=== PATIENT | male | born 1975 | race African-American/Black ===

== ENCOUNTER 2016-11-02 09:19 | Emergency (ER) | payer OTHER, SELFPAY ==
[2016-11-02] MEDS ORDERED: HYDROmorphone 0.5 MG/0.5 ML Syringe IVPUSH ONE (10:28)
[2016-11-02] MEDS ORDERED: Sodium Chloride 0.9% 10 ML Syringe FLUSH PRN (10:28)
[2016-11-02] MEDS ORDERED: Clindamycin Phosphate 600 MG in Sodium Chloride 0.9% 100 ML IV ONE (10:28)
[2016-11-02] MEDS ORDERED: Metoclopramide 10 MG/2 ML SDV IVPUSH ONE (10:29)
--- NOTE | 2016-11-02 10:29 | EDM.PDOC ---
ED HPI HEADACHE COMPLAINT - General Chief Complaint: Headache Stated Complaint: BOTELLO AND FACIAL SWELLING /CHILLS Time Seen by Provider: 11/02/16 10:20 Source of Information: Reports: Patient History Limitations: Reports: No limitations - History of Present Illness INITIAL COMMENTS - FREE TEXT/NARRATIVE: 41-year-old male presents the ED with severe pain right ana-face radiating from a dental problem. Pain and swelling started 3 days ago. Swelling of the face got dramatically worse over the last 24 hours. Constant severe throbbing pain. He was unable to sleep all night due to the pain. Pain appears to be originating from a canine tooth right upper. He complains of bilateral sinus pressure discomfort for several months prior to this however. He has no associated fever or chills. Symptom Onset Date: 10/30/16 Timing/Duration: Reports: day(s):, gradual onset, getting worse Location: Reports: other (right ana-face.) Quality: Reports: pounding, other (throbbing) Severity: Reports: severe. 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 - Related Data Allergies/ADRs: Allergies Allergy/AdvReac Type Severity Reaction Status Date / Time No Known Allergies Allergy Verified 11/02/16 09:31 Home Meds: Home Meds Clindamycin HCl 300 mg PO TID #24 capsule 11/02/16 [Rx] oxyCODONE HCl/Acetaminophen [Percocet 5-325 mg Tablet] 1 - 2 each PO Q4H PRN # 20 tablet 11/02/16 [Rx] Past Medical History - Past Health History Medical/Surgical History: Denies Medical/Surgical History HEENT History: Reports: Sinusitis Social & Family History - Tobacco Use Smoking Status *Q: Current Every Day Smoker Years of Tobacco use: 10 Packs/Tins Daily: 2 Used Tobacco, but Quit: No Second Hand Smoke Exposure: No - Caffeine Use Caffeine Use: Reports: Coffee, Soda - Recreational Drug Use Recreational Drug Use: No - Living Situation & Occupation Living situation: Reports: Occupation: employed ED ROS GENERAL - Review of Systems Review Of Systems: See Below Constitutional: Reports: malaise, weakness, fatigue, decreased appetite. Denies : fever, chills HEENT: Reports: Dental pain (right N9 tooth appears to be the source of his infection and right ana-facial swelling.), Ear pain (right side) Respiratory: Reports: no symptoms, shortness of breath Cardiovascular: Reports: No symptoms Endocrine: Reports: no symptoms GI/Abdominal: Reports: No symptoms : Reports: no symptoms Musculoskeletal: Reports: no symptoms Skin: Reports: no symptoms Neurological: Reports: no symptoms Psychiatric: Reports: No symptoms - Physical Exam Exam: See Below Exam Limited By: No limitations General Appearance: alert, moderate distress (he looks absolutely miserable. The right side of his face is markedly swollen from the edge of his nose to his mandible on the right side and up underneath his eye.) Eye Exam: bilateral eye: normal inspection, PERRL Ears: normal TMs Throat/Mouth: Normal inspection, Normal oropharynx, Other (pain is coming from the right canine tooth at least it seems to be the most sensitive on palpation with tongue blade. A dental abscess evident.) Head Exam: facial swelling (right ana-face is markedly swollen from the edge of his nose to his edge of his mandible and up to his eye on the right side.) Neck: normal inspection, supple, non-tender, full range of motion. No: lymphadenopathy (L), lymphadenopathy (R) Respiratory/Chest: no respiratory distress, lungs clear, normal breath sounds, no accessory muscle use Cardiovascular: normal peripheral pulses, regular rate, rhythm, no edema, no gallop, no murmur Course - Vital Signs Last Recorded V/S: Last Vital Signs Temp 36.8 C 11/02/16 09:26 Pulse 76 11/02/16 09:26 Resp 18 11/02/16 09:26 BP 177/99 H 11/02/16 09:26 Pulse Ox 98 11/02/16 09:26 - Orders/Labs/Meds Orders: Active Orders 24 hr Category Date Time Status Peripheral IV Care [RC] . DIRECTED Care 11/02/16 10:28 Active Ketorolac [Toradol] Med 11/02/16 10:30 Active 30 mg IVPUSH ONETIME Sodium Chloride 0.9% [Saline Flush] Med 11/02/16 10:28 Active 10 ml FLUSH ASDIRECTED PRN Peripheral IV Insertion Adult [OM.PC] Stat Oth 11/02/16 10:28 Ordered Medication Orders Ketorolac Tromethamine (Toradol) 30 mg IVPUSH ONETIME VELIA Last Admin: 11/02/16 11:07 Dose: 30 mg Sodium Chloride (Saline Flush) 10 ml FLUSH ASDIRECTED PRN PRN Reason: Keep Vein Open Last Admin: 11/02/16 11:02 Dose: 10 ml Meds: Medications Generic Name Dose Route Start Last Admin Trade Name Freq PRN Reason Stop Dose Admin Ketorolac Tromethamine 30 mg 11/02/16 10:30 11/02/16 11:07 Toradol IVPUSH 30 mg ONETIME VELIA Administration Sodium Chloride 10 ml 11/02/16 10:28 11/02/16 11:02 Saline Flush FLUSH 10 ml ASDIRECTED PRN Administration Keep Vein Open Discontinued Medications Generic Name Dose Route Start Last Admin Trade Name Freq PRN Reason Stop Dose Admin Hydromorphone HCl 0.5 mg 11/02/16 10:28 11/02/16 10:58 Dilaudid IVPUSH 11/02/16 10:29 0.5 mg ONETIME ONE Administration Clindamycin Phosphate 600 mg/ 104 mls @ 100 mls/hr 11/02/16 10:28 11/02/16 11 :02 Sodium Chloride IV 11/02/16 11:30 100 mls/hr ONETIME ONE Administration Metoclopramide HCl 7.5 mg 11/02/16 10:29 11/02/16 10:56 Reglan IVPUSH 11/02/16 10:30 7.5 mg ONETIME ONE Administration - Radiology Interpretation Free Text/Narrative:: 41-year-old male presents to the ED with right ana-facial swelling and facial pain. It appears that his right canine upper tooth is the culprit tooth causing the dental infection and some facial cellulitis. He has a history of chronic sinusitis with recurrent problems from a 6-7 months however as well. Plan CT maxillofacial bones to be done. He will be given clindamycin 600 mg intravenously for antibiotic. Given Dilaudid 0.5 mg IV with Toradol 30 mg IV and Reglan 7.5 mg IV for acute pain and nausea relief. He will be placed on clindamycin 300 mg 3 times a day for the next 8 days to clear up dental infection. Percocet 5 325 mg tablets one or 2 every 4 hours for pain relief in combination with Motrin 600 mg every 6 hours to reduce pain and inflammation. To followup with dentist when able. - Re-Assessments/Exams Free Text/Narrative Re-Assessment/Exam: 11/02/16 11:27CT of the maxillofacial sinuses does reveal moderate right sided maxillary facial sinusitis. However this appears more old. His current right hemifacial swelling is therefore secondary to dental abscess and spread of infection to the soft tissues. He will be treated as above with clindamycin 600 mg IV. He will be discharged home with clindamycin 300 mg 3 times a day for 8 days and Percocet 5/325mg x 20 tabs. Motrin 600 mg every 6 hours for pain and inflammation relief.Advised followup with dentist in about a week's time to have the tooth extracted. 11/02/16 12:18 patient has completed his clindamycin infusion. His pain is controlled with the Dilaudid Toradol and Reglan. Discharged on Percocet 325 mg tablets x20 for pain relief as above. Departure - Departure Time of Disposition: 12:19 Disposition: Home, Self-Care 01 Condition: fair Clinical Impression: Dental abscess, Facial cellulitis Prescriptions: Clindamycin HCl 300 mg PO TID #24 capsule oxyCODONE HCl/Acetaminophen [Percocet 5-325 mg Tablet] 1 - 2 each PO Q4H PRN # 20 tablet PRN Reason: pain relief. Instructions: Dental Abscess, [id number], Cellulitis, Adult, [id number] Referrals: Narcisa Junior MD [Primary Care Provider] - Forms: ED Department Discharge, Return to Work/School Form Additional Instructions: evaluation in the next apartment today in regards to dental infection appears to be the right canine tooth that is causing an infection that has spread up into the right side of the face. Infection appears to be quite extensive at the time of exam. CT of the facial bones does reveal that there is an underlying right maxillary sinus infection as well. This appears to be unrelated to the dental infection. Treatment was started in the ED with clindamycin 600 mg intravenously and Dilaudid Toradol and Reglan for pain relief. Treatment at home will be clindamycin 300 mg 3 times daily for 8 days to clear up infection Percocet tabs 5-325 one or 2 every 4 hours for pain relief. Continue Motrin 600 mg every 6 hours to relieve pain and inflammation as well.you will need to followup with a dentist within the next 7-10 days tentatively to have that tooth extracted to prevent recurrent infection. Expect marked improvement over the next 48-72 hours. - My Orders Last 24 Hours: My Active Orders 11/02/16 10:28 Peripheral IV Care [RC] . DIRECTED Sodium Chloride 0.9% [Saline Flush] 10 ml FLUSH ASDIRECTED PRN Peripheral IV Insertion Adult [OM.PC] Stat 11/02/16 10:30 Ketorolac [Toradol] 30 mg IVPUSH ONETIME - Assessment/Plan Last 24 Hours: My Active Orders 11/02/16 10:28 Peripheral IV Care [RC] . DIRECTED Sodium Chloride 0.9% [Saline Flush] 10 ml FLUSH ASDIRECTED PRN Peripheral IV Insertion Adult [OM.PC] Stat 11/02/16 10:30 Ketorolac [Toradol] 30 mg IVPUSH ONETIME
[2016-11-02] MEDS ORDERED: Ketorolac 30 MG/ML SDV IVPUSH SCH (10:30)
--- NOTE | 2016-11-02 10:48 | CT ---
CT paranasal sinuses Technique: Multiple axial sections through the paranasal sinuses were obtained. Comparison: No previous study. Findings: Mild mucosal thickening noted within the right maxillary sinus. Other paranasal sinuses are clear. No air-fluid levels are seen. Mastoid sinuses are clear. Middle ear cavities are also clear. Minimal nasal septal deviation is seen. Impression: 1. Mild mucosal thickening within the right maxillary sinus. Minimal nasal septal deviation. 2. CT study of the paranasal sinuses is otherwise unremarkable. Diagnostic code #2
[2016-11-02 12:21] VITALS: BP 130/87
== END 2016-11-02 12:00 | disposition home or self-care (01) ==
LOC: JD.ED 09:19
DX: K04.7 Periapical abscess without sinus (principal); L03.211 Cellulitis of face; F17.210 Nicotine dependence, cigarettes, uncomplicated
CPT/HCPCS: 70486; 96365; 96375; 99284; J1170; J1885; J2765; J7030; J7050

== ENCOUNTER 2017-04-18 18:10 | Emergency (ER) | payer OTHER, SELFPAY ==
[2017-04-18] MEDS ORDERED: Sodium Chloride 0.9% 10 ML Syringe FLUSH PRN (18:28)
--- NOTE | 2017-04-18 18:48 | EDM.PDOC ---
ED HPI GENERAL MEDICAL PROBLEM - General Chief Complaint: Lower Extremity Injury/Pain Stated Complaint: L KNEE INJURY Time Seen by Provider: 04/18/17 18:27 Source of Information: Reports: Patient, Family History Limitations: Reports: Intoxication - History of Present Illness INITIAL COMMENTS - FREE TEXT/NARRATIVE: The patient presents with left knee injury. The patient admits to drinking wine today. He got caught up in the dogs leash and he got tripped up and he fell and hurt his left knee. He has an obvious deformity to the left patella. He cannot lift his leg off the bed. He did not hit his head or hurt his neck. He has no chest pain or abdominal pain. He has no other injuries. Onset: Today, Sudden Duration: Minutes: Location: Reports: Lower Extremity, Left (Patella) Quality: Reports: Sharp Severity: Moderate Improves with: Reports: None Worsens with: Reports: Movement Context: Reports: Activity (He fell. He was tripped by the dog's leash) Associated Symptoms: Reports: No Other Symptoms Left Knee Pain Score (Numeric/FACES): 8 - Related Data Allergies Allergy/AdvReac Type Severity Reaction Status Date / Time No Known Allergies Allergy Verified 11/02/16 09:31 Home Meds: Home Meds Hydrocodone/Acetaminophen [Hydrocodon-Acetaminophen 5-325] 1 - 2 each PO Q6HR PRN #20 tablet 04/18/17 [Rx] Past Medical History - Past Health History Medical/Surgical History: Denies Medical/Surgical History HEENT History: Reports: Sinusitis Social & Family History - Tobacco Use Smoking Status *Q: Never Smoker Years of Tobacco use: 10 Packs/Tins Daily: 2 Used Tobacco, but Quit: No Second Hand Smoke Exposure: No - Caffeine Use Caffeine Use: Reports: Coffee, Soda - Recreational Drug Use Recreational Drug Use: No - Living Situation & Occupation Living situation: Reports: Occupation: Employed Review of Systems - Review of Systems Review Of Systems: See Below Constitutional: Reports: No Symptoms Eyes: Reports: No Symptoms Ears: Reports: No Symptoms Nose: Reports: No Symptoms Mouth/Throat: Reports: No Symptoms Respiratory: Reports: No Symptoms Cardiovascular: Reports: No Symptoms GI/Abdominal: Reports: No Symptoms Genitourinary: Reports: No Symptoms Musculoskeletal: Reports: Other (Left knee pain and deformity) ED EXAM, GENERAL - Physical Exam Exam: See Below Exam Limited By: No Limitations General Appearance: Alert, No Apparent Distress Ears: Normal External Exam Nose: Normal Inspection Head: Atraumatic, Normocephalic Neck: Normal Inspection Respiratory/Chest: No Respiratory Distress, Lungs Clear, Normal Breath Sounds Cardiovascular: Regular Rate, Rhythm, No Edema, No Murmur GI/Abdominal: Soft, Non-Tender, No Organomegaly, No Mass Back Exam: Normal Inspection Extremities: Other (Deformity at the patella that appears to be fractured. Pain upon palpation to that area. Good sensation and pulses distally.) Course - Vital Signs Last Recorded V/S: Last Vital Signs Temp 97.5 F 04/18/17 18:25 Pulse 53 L 04/18/17 18:25 Resp 16 04/18/17 18:25 BP 121/82 04/18/17 18:25 Pulse Ox 99 04/18/17 18:25 - Orders/Labs/Meds Orders: Active Orders 24 hr Category Date Time Status Peripheral IV Care [RC] . DIRECTED Care 04/18/17 18:28 Active Knee Min 4V Lt [CR] Stat Exams 04/18/17 18:27 Ordered Sodium Chloride 0.9% [Saline Flush] Med 04/18/17 18:28 Active 10 ml FLUSH ASDIRECTED PRN Peripheral IV Insertion Adult [OM.PC] Routine Oth 04/18/17 18:28 Ordered Medication Orders Sodium Chloride (Saline Flush) 10 ml FLUSH ASDIRECTED PRN PRN Reason: Keep Vein Open Last Admin: 04/18/17 18:30 Dose: 10 ml Labs: Laboratory Tests 04/18/17 04/18/17 Range/Units 18:30 18:30 WBC 4.69 (4.23-9.07) K/mm3 RBC 5.57 (4.63-6.08) M/mm3 Hgb 14.1 (13.7-17.5) gm/L Hct 42.8 (40.1-51.0) % MCV 76.8 L (79.0-92.2) fl MCH 25.3 L (25.7-32.2) pg MCHC 32.9 (32.2-35.5) g/dl RDW Std Deviation 40.1 (35.1-43.9) fL Plt Count 265 (163-337) K/mm3 MPV 10.2 (9.4-12.3) fl Neut % (Auto) 24.3 L (34.0-67.9) % Lymph % (Auto) 62.9 H (21.8-53.1) % Cowley % (Auto) 6.8 (5.3-12.2) % Eos % (Auto) 5.1 (0.8-7.0) Baso % (Auto) 0.9 (0.1-1.2) % Neut # (Auto) 1.14 L (1.78-5.38) K/mm3 Lymph # (Auto) 2.95 (1.32-3.57) K/mm3 Cowley # (Auto) 0.32 (0.30-0.82) K/mm3 Eos # (Auto) 0.24 (0.04-0.54) K/mm3 Baso # (Auto) 0.04 (0.01-0.08) K/mm3 Manual Slide Review Normal smear Sodium 145 (136-145) mEq/L Potassium 4.0 (3.5-5.1) mEq/L Chloride 106 (98-107) mEq/L Carbon Dioxide 30 (21-32) mEq/L Anion Gap 13.0 (5-15) BUN 8 (7-18) mg/dL Creatinine 1.3 (0.7-1.3) mg/dL Est Cr Clr Drug Dosing 63.00 mL/min Estimated GFR (MDRD) > 60 (>60) mL/min BUN/Creatinine Ratio 6.2 L (14-18) Glucose 99 (74-106) mg/dL Calcium 9.2 (8.5-10.1) mg/dL Total Bilirubin 1.0 (0.2-1.0) mg/dL AST 60 H (15-37) U/L ALT 98 H (16-63) U/L Alkaline Phosphatase 39 L (46-116) U/L Total Protein 8.4 H (6.4-8.2) g/dl Albumin 4.4 (3.4-5.0) g/dl Globulin 4.0 gm/dL Albumin/Globulin Ratio 1.1 (1-2) Ethyl Alcohol 0.28 (0.00) gm% Meds: Medications Generic Name Dose Route Start Last Admin Trade Name Freq PRN Reason Stop Dose Admin Sodium Chloride 10 ml 04/18/17 18:28 04/18/17 18:30 Saline Flush FLUSH 10 ml ASDIRECTED PRN Administration Keep Vein Open - Re-Assessments/Exams Free Text/Narrative Re-Assessment/Exam: 04/18/17 18:48 I ordered an IV saline lock, labs, and an x-ray of his left knee. 04/18/17 19:05 His CBC looks good. His CMP shows slightly elevated liver enzymes. His ETOH is elevated at 0.28. The patient's knee x-ray shows a patellar fracture. There is at least [address] [facility] and talked with Dr Silviano Sheets and he recommended a knee immobilizer and crutches and he can follow up with one of our doctors here in [facility]. Departure - Departure Time of Disposition: 19:10 Disposition: Home, Self-Care 01 Condition: Good Clinical Impression: Left patella fracture Qualifiers: Encounter type: initial encounter Fracture type: closed Fracture morphology: comminuted Fracture alignment: displaced Qualified Code(s): S82.042A - Displaced comminuted fracture of left patella, initial encounter for closed fracture - Discharge Information Prescriptions: Hydrocodone/Acetaminophen [Hydrocodon-Acetaminophen 5-325] 1 - 2 each PO Q6HR PRN #20 tablet PRN Reason: Pain Referrals: Danny Joseph MD [Physician] - 3 Days Forms: ED Department Discharge Additional Instructions: Ice your knee for 15 minutes every other hour while awake for 2 days. Elevate your knee above your heart as much as you can for 2 days to decrease the swelling. Take motrin or aleve for the pain or you can take some hydrocodone for the pain. Follow up with Dr Joseph early next week. Please return if you are worse. - My Orders Last 24 Hours: My Active Orders 04/18/17 18:27 Knee Min 4V Lt [CR] Stat 04/18/17 18:28 Peripheral IV Care [RC] . DIRECTED Sodium Chloride 0.9% [Saline Flush] 10 ml FLUSH ASDIRECTED PRN Peripheral IV Insertion Adult [OM.PC] Routine - Assessment/Plan Last 24 Hours: My Active Orders 04/18/17 18:27 Knee Min 4V Lt [CR] Stat 04/18/17 18:28 Peripheral IV Care [RC] . DIRECTED Sodium Chloride 0.9% [Saline Flush] 10 ml FLUSH ASDIRECTED PRN Peripheral IV Insertion Adult [OM.PC] Routine
[2017-04-18 20:00] VITALS: BP 112/75
--- NOTE | 2017-04-19 13:56 | CR ---
Left knee: Four views of the left knee were obtained. Comparison: No previous study. Comminuted and distracted patellar fracture is seen. Mild medial joint space narrowing is noted within the knee. Small joint effusion is seen. No additional fracture is appreciated. Impression: 1. Comminuted and distracted patellar fracture. 2. Other incidental findings as noted above. Diagnostic code #5
== END 2017-04-18 19:30 | disposition home or self-care (01) ==
LOC: JD.ED 18:10
DX: S82.042A Displaced comminuted fracture of left patella, initial encounter for closed fracture (principal); W01.0XXA Fall on same level from slipping, tripping and stumbling without subsequent striking against object, initial encounter
CPT/HCPCS: 36415; 73564; 80053; 85025; 99284; G0480; J7050

== ENCOUNTER 2017-04-21 07:38 | Day surgery (SDC) | payer OTHER, SELFPAY ==
--- NOTE | 2017-04-21 06:23 | HP ---
DATE OF ADMISSION: 04/21/2017 HISTORY: This is the first orthopedic outpatient admission for surgery for this 42-year- old male, who suffered an injury to his left knee. The patient was out jogging on 04/18/2017, when he tripped over a rope, fell directly on his left knee, causing severe swelling and pain. He presented to the emergency room, and x- rays found him to have a comminuted fracture of the left patella that was displaced. The patient had no other injuries other than the left knee. The patient was evaluated through the [facility]opedic [facility] and after evaluation and the significant fracture of the patella, he is now being scheduled for an outpatient surgery for open reduction and internal fixation of the left patella. Procedure has been outlined to him. He understands that and has consented to the surgery. ALLERGIES: No known drug allergies. PAST MEDICAL HISTORY: Healthy 42-year-old male, who has been quite active. CURRENT MEDICATIONS: Include hydrocodone 5/325. PAST SURGICAL HISTORY: Questionable left knee. The patient states he had to have fluid drained under general anesthesia. No complications or problems from the anesthesia. SOCIAL HISTORY: The patient is a smoker. He smokes approximately 10-11 cigars per day. His alcohol intake is occasional. REVIEW OF SYSTEMS: The patient denies any bleeding history or blood clot history. PHYSICAL EXAMINATION: GENERAL: Today reveals a well-developed, well-nourished 42-year-old black male, in [id number] distress. HEAD, EYES, EARS, NOSE, AND THROAT: Normocephalic. NECK: Supple. CHEST: Clear. COR: Regular rate. ABDOMEN: Soft. : Intact. EXTREMITIES: Examination of the left knee reveals positive severe effusion noted about the knee joint area, severe pain on direct pressure or palpation over the patella. Skin is intact. Circulation is intact. RADIOLOGY: X-rays reveal a comminuted displaced fracture of the left patella. PLAN: Plan is for the patient to undergo an open reduction and internal fixation of the left patella fracture. ZAIDA /[id number]
[~2017-04-21 07:38] MED LIST: Lactated Ringers 1,000 ML IV SCH; Lidocaine 1%/Sod Bicarbonate in NS 8.4% 1 ML Syringe IV PRN; Sodium Chloride 0.9% 10 ML Syringe FLUSH PRN
[2017-04-21] MEDS ORDERED: Lidocaine 1% 4 ML ONE (08:24)
[2017-04-21] MEDS ORDERED: Ondansetron 4 MG/2 ML SDV ONE (08:24)
[2017-04-21] MEDS ORDERED: Midazolam 1 MG/ML 2 ML SDV ONE (08:25)
[2017-04-21] MEDS ORDERED: Propofol 200 MG/20 ML SDV ONE (08:25)
[2017-04-21] MEDS ORDERED: fentaNYL 250 MCG/5 ML SDV ONE (08:25)
[2017-04-21] MEDS ORDERED: Iodine/Sodium Iodide 2% Tincture 30 ML Bottle ONE (08:30)
--- NOTE | 2017-04-21 08:58 | PCM.PREANE ---
Preanesthetic Assessment - Anesthesia/Transfusion/Family Hx Anesthesia History: No Prior Anesthesia Family History of Anesthesia Reaction: No Transfusion History: No Prior Transfusion(s) - Review of Systems General: No Symptoms Pulmonary: No Symptoms Cardiovascular: No Symptoms Gastrointestinal: No Symptoms Neurological: No Symptoms Other: Reports: Liver Problems (aenzymes elevated) - Physical Assessment NPO Status Date: 04/20/17 NPO Status Time: 23:00 O2 Sat by Pulse Oximetry: 98 Respiratory Rate: 16 Vital Signs: Last Vital Signs Temp 98.6 F 04/21/17 07:50 Pulse 70 04/21/17 07:50 Resp 16 04/21/17 07:50 BP 124/87 04/21/17 07:50 Pulse Ox 98 04/21/17 07:50 Height: 5 ft 6 in Weight: 58.06 kg ASA Class: 2 Mental Status: Alert & Oriented x3 Airway Class: Mallampati = 2 Dentition: Reports: Missing Tooth/Teeth, Caries Thyro-Mental Finger Breadths: 3 Mouth Opening Finger Breadths: 3 ROM/Head Extension: Full Lungs: Clear to Auscultation, Normal Respiratory Effort Cardiovascular: Regular Rate, Regular Rhythm, No Murmurs - Allergies Allergies/Adverse Reactions: Allergies Allergy/AdvReac Type Severity Reaction Status Date / Time No Known Allergies Allergy Verified 04/20/17 15:53 - Blood Blood Available: No - Acknowledgements Anesthesia Type Planned: General Anesthesia Pt an Appropriate Candidate for the Planned Anesthesia: Yes Alternatives and Risks of Anesthesia Discussed w Pt/Guardian: Yes Pt/Guardian Understands and Agrees with Anesthesia Plan: Yes PreAnesthesia Questionnaire - Past Health History Medical/Surgical History: Denies Medical/Surgical History HEENT History: Reports: Sinusitis, Other (See Below) (can't read or write) Cardiovascular History: Reports: None Respiratory History: Reports: None Gastrointestinal History: Reports: None Genitourinary History: Reports: None 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: 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: None Neurological History: Reports: None Psychiatric History: Reports: None Endocrine/Metabolic History: Reports: None Hematologic History: Reports: None Immunologic History: Reports: None Oncologic (Cancer) History: Reports: None Dermatologic History: Reports: None - Past Surgical History Head Surgeries/Procedures: Reports: None Cardiovascular Surgical History: Reports: None Respiratory Surgical History: Reports: None GI Surgical History: Reports: None Female Surgical History: Reports: None Male Surgical History: Reports: None Neurological Surgical History: Reports: None Musculoskeletal Surgical History: Reports: Other (See Below) Other Musculoskeletal Surgeries/Procedures:: L knee surgery Dermatological Surgical History: Reports: None - SUBSTANCE USE Smoking Status *Q: Current Every Day Smoker Tobacco Use Within Last Twelve Months: Cigars Second Hand Smoke Exposure: Yes Days Per Week of Alcohol Use: 3 Number of Drinks Per Day: 12 (beer) Total Drinks Per Week: 36 Recreational Drug Use History: No - HOME MEDS Home Medications: Home Meds Hydrocodone/Acetaminophen [Hydrocodon-Acetaminophen 5-325] 1 - 2 each PO Q6HR PRN #20 tablet 04/18/17 [Rx] - CURRENT (IN HOUSE) MEDS Current Meds: Current Medications Lactated Ringer's (Ringers, Lactated) 1,000 mls @ 125 mls/hr IV ASDIRECTED VELIA Stop: 04/21/17 23:00 Last Admin: 04/21/17 08:17 Dose: 125 mls/hr Lidocaine/Sodium Bicarbonate (Buffered Lidocaine 1% In Ns 8.4%) 0.25 ml IV ONETIME PRN PRN Reason: Prior to IV Start Stop: 04/21/17 18:00 Last Admin: 04/21/17 08:17 Dose: 0.25 ml Sodium Chloride (Saline Flush) 10 ml FLUSH ASDIRECTED PRN PRN Reason: Keep Vein Open Stop: 04/21/17 18:00 Discontinued Medications Bupivacaine HCl/Epinephrine Bitart (Marcaine 0.25%/Epinephrine 1:200,000) Confirm Administered Dose 30 ml .ROUTE .STK-MED ONE Stop: 04/21/17 08:31 Fentanyl (Sublimaze) Confirm Administered Dose 250 mcg .ROUTE .STK-MED ONE Stop: 04/21/17 08:26 Lidocaine HCl (Xylocaine-Mpf 1%) Confirm Administered Dose 4 mls @ as directed .ROUTE .STK-MED ONE Stop: 04/21/17 08:25 Iodine (Iodine 2% Mild Tincture) Confirm Administered Dose 30 ml .ROUTE .STK- MED ONE Stop: 04/21/17 08:31 Midazolam HCl (Versed 1 Mg/Ml) Confirm Administered Dose 2 mg .ROUTE .STK-MED ONE Stop: 04/21/17 08:26 Ondansetron HCl (Zofran) Confirm Administered Dose 4 mg .ROUTE .STK-MED ONE Stop: 04/21/17 08:25 Propofol (Diprivan 20 Ml) Confirm Administered Dose 200 mg .ROUTE .STK-MED ONE Stop: 04/21/17 08:26
[2017-04-21] MEDS ORDERED: Cyclobenzaprine 10 MG Tab PO PRN (09:12)
[2017-04-21] MEDS ORDERED: HYDROmorphone 0.5 MG/0.5 ML Syringe IVPUSH PRN ×2 (09:12→10:20)
[2017-04-21] MEDS ORDERED: Ondansetron 4 MG/2 ML SDV IVPUSH PRN ×2 (09:12→09:37)
[2017-04-21] MEDS ORDERED: Acetaminophen/oxyCODONE 325-5 MG Tab PO PRN (09:12)
[2017-04-21] MEDS ORDERED: Ketorolac 30 MG/ML SDV IVPUSH PRN (09:12)
[2017-04-21] MEDS ORDERED: Rocuronium 50 MG/5 ML Vial ONE (09:25)
[2017-04-21] MEDS ORDERED: Meperidine PF 50 MG/ML Syringe IVPUSH PRN (09:37)
[2017-04-21] MEDS ORDERED: fentaNYL 100 MCG/2 ML SDV IVPUSH PRN (09:37)
[2017-04-21] MEDS ORDERED: ceFAZolin 1 GM Vial ONE (09:46)
[2017-04-21] MEDS ORDERED: Lactated Ringers 1,000 ML ONE (09:56)
[2017-04-21] MEDS: Lidocaine 1% with EPINEPHrine 1:100,000 20 ML MDV ONE ×2 (09:58→11:10)
[2017-04-21] MEDS: Bupivacaine 0.25%/EPINEPHrine 1:200,000 30 ML SDV ONE ×2 (09:58→11:10)
[2017-04-21] MEDS ORDERED: HYDROmorphone 1 MG/ML Syringe ONE ×2 (10:02→10:36)
[2017-04-21] MEDS ORDERED: Morphine 15 MG Tab.ER PO ONE (11:15)
[2017-04-21] MEDS ORDERED: Ketorolac 30 MG/ML SDV ONE (11:25)
--- NOTE | 2017-04-21 11:29 | PCM.POSTAN ---
POST ANESTHESIA ASSESSMENT - MENTAL STATUS Mental Status: Alert, Oriented - VITAL SIGNS Pulse Rate: 94 SaO2: 97 Resp Rate: 16 Blood Pressure: 141/81 Temperature: 36.7 C - RESPIRATORY Respiratory Status: Respiratory Rate WNL, Airway Patent, O2 Saturation Stable, Supplemental Oxygen - CARDIOVASCULAR CV Status: Pulse Rate WNL, Blood Pressure Stable - GASTROINTESTINAL GI Status: No Symptoms - PAIN Pain Score: 0 - POST OP HYDRATION Hydration Status: Adequate & Stable
[2017-04-21 12:53] VITALS: BP 153/79
--- NOTE | 2017-04-21 13:54 | OR ---
DATE OF OPERATION: 04/21/2017 SURGEON: Danny Joseph MD PREOPERATIVE DIAGNOSIS: Comminuted fracture of left patella, displaced, unstable. POSTOPERATIVE DIAGNOSIS: Comminuted fracture of left patella, displaced, unstable. ANESTHESIA: General. OPERATION PERFORMED: Open reduction and internal fixation of comminuted left patellar fracture with tension band wiring. DESCRIPTION OF PROCEDURE: The patient was taken to the operating room in a supine position, where he was placed under a general anesthesia. The left leg was prepped and draped by standard fashion for operation to the left knee. After prepping and draping, the operation proceeded with a midline skin incision being placed, beginning about an inch above the superior pole area and ending about an inch below the inferior pole of the patella. Penetrating through the skin and subcutaneous tissues, these were sharply dissected down to the surrounding fascia and the patella itself and the fracture site. The fracture site was then identified and the soft tissues were reflected away from the patella on both the medial and lateral side to expose the patella, the patella tendon, and the area of the quadriceps tendon. The patellar fracture site was then opened and it was debrided of all the hematoma that was present in the bone area. There was one loose bone fragment that was free, which was removed from the patellar area. Once that was removed, the operation continued with debridement of the patella surfaces and fracture site surfaces until nice clean bone was obtained. Once that was obtained, the operation proceeded with the final inspection of the joint itself. No other loose fragments or bony tissues could be identified. The fracture was then brought into place, and patella was reduced and held in place with tenaculums. Then, 2 longitudinal K-wires were placed down the patella incorporating the proximal to the distal fragment and anatomically reducing the fracture to the fracture line area. The superolateral pole was comminuted in this area, will be debrided, and then will be fixated with heavy- duty sutures at the end of the procedure. Once the K-wire was in place, the operation then proceeded with passing of a wire under the distal ends of the K- wires and in [id number] across the top of the patella and then under the proximal ends of the K-wires. The wire was then closed and tightened down on the patella. Once that was done, tension was then applied to the wire and it very nicely reapproximated the fracture fragments with good pressure. The fluoroscopy was brought in to evaluate the reduction with the pins and the wire, and this was found to be very satisfactory and anatomic. The operation then proceeded with continued treatment and completion of the tension band wiring by bending the ends of the K-wires and then impacting into the proximal pole of the patella. Again, the fluoroscopy was brought in to make sure the wire remained under the K-wires. Once that was satisfactory, a thorough irrigation was carried out, again, in the joint and around the patella region. The superolateral pole was then reattached and held in place with #2 Vicryl, reattaching the proximal heavy capsular tissues and then the lateral capsular tissues, and then a suture being placed circumferentially around the fragment and attached to the stabilized medial pole of the patella. This securely fixed the fracture fragment. There was one area where a chunk of a bone was fractured and loose. This was cleaned and then the small pieces of this bone was placed into the fracture cleft area, that was still a small area that was open, to complete the fixation of the fracture and filling the void. Operation then proceeded with irrigation of wound again and then the capsular tissues in both the medial and lateral sides were reapproximated with #2 Vicryl. The subcutaneous tissues were reattached with #2 Vicryl after thorough irrigation. The skin was closed with skin satinder. The patient was placed in a Garcia dressing and a knee immobilizer. This patient tolerated this whole procedure well and left the operating room in a stable condition to recovery room. At the end of the procedure, hardcopy x-rays were taken and, again, these were found to be very satisfactory with good reduction of the fracture of patella. ESTIMATED BLOOD LOSS: MMODAL /[id number]
--- NOTE | 2017-04-21 18:30 | CR ---
Left knee: Ten fluoroscopic spot views were obtained of the left knee. Study obtained utilizing C-arm device. Comparison: Previous left knee study of 04/18/17. Study shows reduction and fixation of previous displaced patellar fracture. Fluoroscopy time is 14.6 seconds. Impression: 1. Operative study as described above. Diagnostic code #2
== END 2017-04-21 13:15 | disposition home or self-care (01) ==
LOC: JD.SDS 07:38
PROVIDERS: ATTEND Specialist
PROC: 0QSF04Z Reposition Left Patella with Internal Fixation Device, Open Approach (ICD-10-PCS; principal; 2017-04-21)
DX: S82.042A Displaced comminuted fracture of left patella, initial encounter for closed fracture (principal); F17.290 Nicotine dependence, other tobacco product, uncomplicated; Z98.890 Other specified postprocedural states
CPT/HCPCS: 27524; 76000; A9270; J0690; J1170; J1885; J2250; J2405; J3010; J7120; 01392; J2704

== ENCOUNTER 2017-09-17 08:06 | Day surgery (SDC) | payer OTHER, SELFPAY ==
--- NOTE | 2017-09-14 14:23 | HP ---
DATE OF ADMISSION: 09/14/2017 HISTORY: This is the second orthopedic outpatient admission for surgery for this 42-year- old male who has been admitted with a post fracture left patella, underwent surgical open reduction and internal fixation on 04/21/2017. The patient has developed painful hardware with loosening of the K-wires within the patella. The patient is now being scheduled for hardware removal. Procedure has been outlined to him. He understands the risks and complications involved with that. PAST MEDICAL HISTORY: ALLERGIES: No known drug allergies. He does have a lactose intolerance and also to pork meat. CURRENT MEDICATIONS: Current medications are ibuprofen. MEDICAL PROBLEMS: Medically, the patient has been healthy. I note no medical changes since his last surgery. PAST SURGICAL HISTORY: Positive. He underwent open reduction and internal fixation of left patella on 04/21/2017. He had no anesthesia problems or complications. Negative bleeding history noted and also negative blood clot history. SOCIAL HISTORY: The patient does smoke. He smokes 10 cigarettes per day. Also, he uses alcohol on a very rare occasion. PHYSICAL EXAMINATION: GENERAL: Today, reveals a well-developed, well-nourished male, in moderate distress. HEAD, EYES, EARS, NOSE, AND THROAT: Normocephalic. NECK: Supple. CHEST: Clear. COR: Regular rate. ABDOMEN: Soft. : Intact. MUSCULOSKELETAL: Examination of left knee reveals a healed surgical incisions with positive swelling in the superior pole of left patella and area of the hardware fixation site. He has positive pain to palpation. RADIOLOGY EVALUATION: The patient shows a fracture of the left patella that is healed. No fracture line visible with a cerclage wire and pins, with pins migrating proximally. ASSESSMENT: Overall impression is painful hardware, left patella. PLAN: Plan is for the patient to undergo hardware removal. Procedure was outlined to him. He understands the risks and complications involved and has consented to the surgery. ZAIDA /[id number]
--- NOTE | 2017-09-17 07:58 | PCM.PREANE ---
Preanesthetic Assessment - Anesthesia/Transfusion/Family Hx Anesthesia History: Prior Anesthesia Without Reaction Family History of Anesthesia Reaction: No Transfusion History: No Prior Transfusion(s) Intubation History: Unknown - Review of Systems General: No Symptoms Pulmonary: No Symptoms (Current every day smoker: 10 cigars/day times 12 years.) Cardiovascular: No Symptoms Gastrointestinal: No Symptoms (GERD on occasion depending on diet.) Neurological: No Symptoms Other: Reports: Liver Problems (History of elevated liver enzymes, patient states since April he has decreased his ETOH consumption.) - Physical Assessment NPO Status Date: 09/16/17 NPO Status Time: 23:00 Pulse: 59 O2 Sat by Pulse Oximetry: 100 Respiratory Rate: 16 Blood Pressure: 123/68 Temperature: 36.6 C Height: 1.68 m Weight: 66.678 kg ASA Class: 2 Mental Status: Alert & Oriented x3 Airway Class: Mallampati = 2 Dentition: Reports: Normal Dentition, Caries Thyro-Mental Finger Breadths: 3 Mouth Opening Finger Breadths: 3 ROM/Head Extension: Full Lungs: Clear to Auscultation, Normal Respiratory Effort Cardiovascular: Regular Rate, Regular Rhythm, No Murmurs - Lab Values: MRSA screen negative. All other labs reviewed and noted and within acceptable ranges to proceed with scheduled procedure. - Allergies Allergies/Adverse Reactions: Allergies Allergy/AdvReac Type Severity Reaction Status Date / Time No Known Allergies Allergy Verified 09/16/17 16:11 - Anesthesia Plan Pre-Op Medication Ordered: None - Acknowledgements Anesthesia Type Planned: General Anesthesia Pt an Appropriate Candidate for the Planned Anesthesia: Yes Alternatives and Risks of Anesthesia Discussed w Pt/Guardian: Yes Pt/Guardian Understands and Agrees with Anesthesia Plan: Yes PreAnesthesia Questionnaire - Past Health History Medical/Surgical History: Denies Medical/Surgical History HEENT History: Reports: Sinusitis Cardiovascular History: Reports: None Respiratory History: Reports: None Gastrointestinal History: Reports: None Genitourinary History: Reports: None TELEHEALTH COORDINATOR History: Reports: None Neurological History: Reports: None Psychiatric History: Reports: None Endocrine/Metabolic History: Reports: None Hematologic History: Reports: None Immunologic History: Reports: None Oncologic (Cancer) History: Reports: None Dermatologic History: Reports: None - Past Surgical History Head Surgeries/Procedures: Reports: None Cardiovascular Surgical History: Reports: None Respiratory Surgical History: Reports: None GI Surgical History: Reports: None Female Surgical History: Reports: None Male Surgical History: Reports: None Endocrine Surgical History: Reports: None Neurological Surgical History: Reports: None Musculoskeletal Surgical History: Reports: Other (See Below) Other Musculoskeletal Surgeries/Procedures:: L knee surgery Dermatological Surgical History: Reports: None - SUBSTANCE USE Smoking Status *Q: Current Every Day Smoker Tobacco Use Within Last Twelve Months: Cigars Second Hand Smoke Exposure: Yes Days Per Week of Alcohol Use: 3 Number of Drinks Per Day: 12 Total Drinks Per Week: 36 Recreational Drug Use History: No - HOME MEDS Home Medications: Home Meds . [No Known Home Meds] 09/16/17 [History] - CURRENT (IN HOUSE) MEDS Current Meds: Current Medications Lactated Ringer's (Ringers, Lactated) 1,000 mls @ 125 mls/hr IV ASDIRECTED VELIA Stop: 09/17/17 23:00 Lidocaine/Sodium Bicarbonate (Buffered Lidocaine 1% In Ns 8.4%) 0.25 ml .XX ONETIME PRN PRN Reason: Prior to IV Start Stop: 09/17/17 18:00 Sodium Chloride (Saline Flush) 10 ml FLUSH ASDIRECTED PRN PRN Reason: Keep Vein Open Stop: 09/17/17 18:00 Discontinued Medications Cefazolin Sodium (Ancef) Confirm Administered Dose 2 gm .ROUTE .STK-MED ONE Stop: 09/17/17 07:45 Dexamethasone (Dexamethasone) Confirm Administered Dose 8 mg .ROUTE .STK-MED ONE Stop: 09/17/17 07:45 Fentanyl (Sublimaze) Confirm Administered Dose 100 mcg .ROUTE .STK-MED ONE Stop: 09/17/17 07:45 Lidocaine HCl (Xylocaine-Mpf 1%) Confirm Administered Dose 4 mls @ as directed .ROUTE .STK-MED ONE Stop: 09/17/17 07:45 Lactated Ringer's (Ringers, Lactated) Confirm Administered Dose 1,000 mls @ as directed .ROUTE .STK-MED ONE Stop: 09/17/17 07:45 Ketorolac Tromethamine (Toradol) Confirm Administered Dose 30 mg .ROUTE .STK- MED ONE Stop: 09/17/17 07:45 Midazolam HCl (Versed 1 Mg/Ml) Confirm Administered Dose 2 mg .ROUTE .STK-MED ONE Stop: 09/17/17 07:46 Ondansetron HCl (Zofran) Confirm Administered Dose 4 mg .ROUTE .STK-MED ONE Stop: 09/17/17 07:45 Propofol (Diprivan 20 Ml) Confirm Administered Dose 200 mg .ROUTE .STK-MED ONE Stop: 09/17/17 07:45
[~2017-09-17 08:06] MED LIST changes: +Dexamethasone 4 MG/ML SDV ONE; +Ketorolac 30 MG/ML SDV ONE; +Lactated Ringers 1,000 ML ONE; +Lidocaine 1% 4 ML ONE; -Lidocaine 1%/Sod Bicarbonate in NS 8.4% 1 ML Syringe IV PRN; +Lidocaine 1%/Sod Bicarbonate in NS 8.4% 1 ML Syringe PRN; +Midazolam 1 MG/ML 2 ML SDV ONE; +Ondansetron 4 MG/2 ML SDV ONE; +Propofol 200 MG/20 ML SDV ONE; +ceFAZolin 1 GM Vial ONE; +fentaNYL 100 MCG/2 ML SDV ONE
[2017-09-17] MEDS ORDERED: Iodine/Sodium Iodide 2% Tincture 30 ML Bottle ONE (08:28)
[2017-09-17] MEDS ORDERED: Lidocaine 1% 30 ML SDV ONE (08:28)
[2017-09-17] MEDS ORDERED: Bupivacaine 0.5%/EPINEPHrine 1:200,000 50 ML MDV ONE (09:47)
[2017-09-17] MEDS ORDERED: Ondansetron 4 MG/2 ML SDV IVPUSH PRN ×2 (10:04→10:14)
[2017-09-17] MEDS ORDERED: Ketorolac 30 MG/ML SDV IVPUSH PRN ×2 (10:04→14:00)
[2017-09-17] MEDS ORDERED: Acetaminophen/HYDROcodone 325-5 MG Tab PO PRN (10:04)
[2017-09-17] MEDS ORDERED: fentaNYL 100 MCG/2 ML SDV IVPUSH PRN (10:14)
[2017-09-17] MEDS ORDERED: HYDROmorphone 0.5 MG/0.5 ML Syringe IVPUSH PRN (10:14)
[2017-09-17] MEDS ORDERED: Phenylephrine 1 MG in Sodium Chloride 0.9% 10 ML IV SCH (10:15)
[2017-09-17] MEDS ORDERED: Morphine 15 MG Tab.ER PO SCH (10:15)
--- NOTE | 2017-09-17 11:12 | PCM.POSTAN ---
POST ANESTHESIA ASSESSMENT - MENTAL STATUS Mental Status: Alert - VITAL SIGNS Pulse Rate: 76 SaO2: 100 Resp Rate: 11 Blood Pressure: 127/80 Temperature: 36.6 C - RESPIRATORY Respiratory Status: Respiratory Rate WNL, Airway Patent, O2 Saturation Stable, Supplemental Oxygen - CARDIOVASCULAR CV Status: Pulse Rate WNL, Blood Pressure Stable - GASTROINTESTINAL GI Status: No Symptoms - POST OP HYDRATION Hydration Status: Adequate & Stable
--- NOTE | 2017-09-17 11:25 | PCM48HPAN ---
Post Anesthesia Note - EVALUATION WITHIN 48HRS OF ANESTHETIC Vital Signs in Normal Range: Yes Patient Participated in Evaluation: Yes Respiratory Function Stable: Yes Airway Patent: Yes Cardiovascular Function Stable: Yes Hydration Status Stable: Yes Pain Control Satisfactory: Yes Nausea and Vomiting Control Satisfactory: Yes Mental Status Recovered: Yes
[2017-09-17 13:50] VITALS: BP 137/64
--- NOTE | 2017-09-18 07:23 | OR ---
DATE OF OPERATION: 09/17/2017 SURGEON: Danny oJseph MD PREOPERATIVE DIAGNOSIS: Fracture, left patella with hardware, wire, and pins. POSTOPERATIVE DIAGNOSIS: Fracture, left patella with hardware, wire, and pins. ANESTHESIA: General. OPERATION PERFORMED: Removal of hardware, left patella. DESCRIPTION OF PROCEDURE: The patient was taken to the operating room in a supine position. He was placed under a general anesthesia. The left leg was prepped and draped in a sterile fashion. Operation began with an incision being used beginning in the midportion of the patella using the old previous healed incision and extending proximally approximately 2 cm above the superior pole of patella. Penetration was made through the skin and the subcutaneous tissues and then by sharp probing, the first Steinmann pin was found deep in the quad tendon area, it was removed in a proximal fashion. The second Steinmann pin also was identified and removed. The cerclage wire that was used was then isolated and then the wire was cut proximally and then by easy motion and movement, the wire was then threaded back through the fibrous tissues and removed from the patella. Once that was completed, the area was then thoroughly irrigated and the operation was proceeded with closure of deep tissues with 2-0 Vicryl. The skin was closed with skin satinder. The patient was placed in a soft dressing. He tolerated the procedure well, left the operating room in stable condition to his room for recovery. ESTIMATED BLOOD LOSS: MMODAL /[id number]
== END 2017-09-17 13:15 | disposition home or self-care (01) ==
LOC: JD.SDS 08:06
PROVIDERS: ATTEND Specialist
DX: T84.84XA Pain due to internal orthopedic prosthetic devices, implants and grafts, initial encounter (principal); F17.210 Nicotine dependence, cigarettes, uncomplicated
CPT/HCPCS: 20680; A9270; J0690; J1100; J1885; J2250; J2405; J3010; J7120; 01392; J2001; J2704

== ENCOUNTER 2024-01-15 15:26 | Emergency (ER) | payer BC, OTHER ==
[2024-01-15 17:59] LABS: APPEARANCE,URINE CLEAR (Clear); BILIRUBIN,URINE NEGATIVE (Negative); COLOR,URINE YELLOW (Yellow); GLUCOSE,URINE NEGATIVE (Negative); KETONES,URINE NEGATIVE (Negative); LEUKOCYTE ESTERASE,URINE NEGATIVE (Negative); NITRITE,URINE NEGATIVE (Negative); OCCULT BLOOD,URINE NEGATIVE (Negative); PROTEIN,URINE NEGATIVE (Negative); UROBILINOGEN,URINE 0.2 (0.2-1.0)
[2024-01-15 19:05] LABS: C. TRACHOMATIS BY PCR NOT DETECTED; N. GONORRHOEAE BY PCR NOT DETECTED
[2024-01-15] MEDS: Acetaminophen Soln 650 MG/20.3 ML UD Cup PO ONE (19:36)
[2024-01-15 23:57] VITALS: BP 148/103; PULSE 63
== END 2024-01-15 19:37 | disposition home health service (06) ==
LOC: JD.ED 15:26
DX: R30.0 Dysuria (principal); F17.210 Nicotine dependence, cigarettes, uncomplicated; Z79.2 Long term (current) use of antibiotics
CPT/HCPCS: 81003; 87491; 87591; 99283; A9270

== ENCOUNTER 2025-01-04 10:29 | Emergency (ER) | payer BC ==
[2025-01-04 11:25] VITALS: BP 145/85; PULSE 98
== END 2025-01-04 11:33 | disposition home or self-care (01) ==
LOC: JD.ED 10:29
DX: Z55.0 Illiteracy and low-level literacy (principal)
CPT/HCPCS: 99282; 99283